=== PATIENT | female | born 1950 | race Caucasian/White ===

== ENCOUNTER 2016-12-17 02:53 | Inpatient (IN) | payer OTHER, MEDICARE ==
[~2016-12-17] VITALS: Ht 154.9 cm; Wt 78.6 kg
[2016-12-17] VITALS (7 sets, daily range): BP systolic 101–169; BP diastolic 56–109
--- NOTE | ~2016-12-17 | CATHLAB ---
[facility] [place] [address] INVASIVE PROCEDURE REPORT Name: FLAVIAKERLINEDELVIS Room #: 215-P [facility] IN [facility]#: [id number] Admission: 12/17/16 Attend Phys: Jose C Potts MD Discharge: Date of : 50 Date of Service: 12/17/16 1735 Report #: [id number] THIS REPORT FOR: //name// CC: Moshe Potts DATE OF SERVICE: 12/17/2016 INDICATION: Positive troponins, unstable angina. Full risks, benefits and alternatives of cardiac catheterization were explained to the patient. All questions were answered. Informed consent was obtained. The right groin area was prepped and draped in a sterile manner. Lidocaine was given subcutaneously. A 4-Zimbabwean sheath was inserted into the right femoral artery via modified Seldinger technique. CORONARY ANATOMY: The left main is a large caliber vessel, with no flow-limiting lesions. The LAD is a yhcvfdwm-[id number]-wnddt sized caliber vessel, travelling down the anterior wall and wrapping around the apex. There were no flow-limiting lesions in the LAD. There is a myocardial bridge in the proximal segment of the LAD with systolic collapse. The left circumflex artery gives off 2 obtuse marginal arteries, with no flow-limiting lesions. The RCA is a dominant vessel, supplying a PDA and posterolateral branch. There is mild disease in the proximal segment of the RCA, 20%. The ostium of the PDA has a mild stenosis, 30%. The LVEDP is approximately 20 mmHg. There is no gradient across the outflow tract. A ventriculogram was not performed. IMPRESSION AND PLAN: 1. 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 2. Mild disease in the right coronary artery and posterior descending artery. 3. By echo, hypertrophic cardiomyopathy with hyperdynamic left ventricular [facility] [place] [address] [place] [address] INVASIVE PROCEDURE REPORT Name: DELVIS SORIA Room #: 215-P [facility] IN [facility]#: [id number] Admission: 12/17/16 Attend Phys: Jose C Potts MD Discharge: Date of : 50 Date of Service: 12/17/16 1735 Report #: [id number] systolic function. 4. Recommend medical therapy. <ELECTRONICALLY SIGNED> By: Vikram Cardona MD 12/18/16 0818 1735 0333 Vikram Cardona MD /nt
--- NOTE | ~2016-12-17 | EKG ---
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
--- NOTE | ~2016-12-17 | 2DMMODE ---
[facility] [place] [address] 2 D/M-MODE ECHOCARDIOGRAM Name: FLAVIAKERLINEDELVIS Room #: 215-P [facility] IN ..#: [id number] Admission: 12/17/16 Attend Phys: Jose C Potts MD Discharge: Date of : 50 Date of Service: 12/17/16 1532 Report #: [id number] THIS REPORT FOR: //name// APPROVED REPORT Study performed: 12/17/2016 12:00:05 EXAM: Comprehensive 2D, Doppler, and color-flow Echocardiogram Patient Location: Bedside Room #: 215 Blood Pressure: 118/62 mmHg HR: 55 bpm Other Information Study Quality: Adequate Indications Dyspnea Atrial Fibrillation Hypertension/HDD Echo Enhancing Agent Indication: Endocardial border delineation Agent/Amount Used: Definity 2 cc 2D Dimensions LVEF(%): 69.34 (>50%) IVSd: 21.16 (7-11mm) LVOT Diam: 17.76 (18-24mm) LVDd: 30.15 mm PWd: 14.45 (7-11mm) Ascending Ao: 30.26 (22-36mm) LVDs: 18.80 (25-40mm) Aortic Root: 30.16 mm Capellan's LVEF: 69.34 % Volumes Left Atrial Volume (Systole) Single Plane 4CH: 104.24 mL Single Plane 2CH: 62.80 mL LA ESV Index: 54.00 mL/m2 Aortic Valve AoV Peak Jesus Manuel.: 1.54 m/s AO Peak Gr.: 9.48 mmHg LVOT Max P.91 mmHg [facility] [address] [place] [address] 2 D/M-MODE ECHOCARDIOGRAM Name: MISTIEMILKERLINEDELVIS Room #: 215-P [facility] IN [facility]#: [id number] Admission: 12/17/16 Attend Phys: Jose C Potts MD Discharge: Date of : 50 Date of Service: 12/17/16 1532 Report #: [id number] LVOT Max V: 1.11 m/s MARTHA Vmax: 1.78 cm2 Mitral Valve E/A Ratio: 2.0 MV Decel. Time: 179.16 ms MV E Max Jesus Manuel.: 0.75 m/s MV A Jesus Manuel.: 0.38 m/s MV PHT: 51.96 ms IVRT: 55.36 ms Pulmonary Valve PV Peak Jesus Manuel.: 0.82 m/s PV Peak Gr.: 2.71 mmHg NC End Vmax: 1.30 m/s Pulmonary Vein P Vein S: 38.1 m/s P Vein A: 23.31 m/s P Vein D: 27.8 m/s P Vein A Dur.: 110.7 msec Left Ventricle The left ventricle is normal size. Echo findings are consistent with hypertrophic cardiomyopathy. Severe concentric left ventricular hypertrophy. Left ventricular systolic function is hyperdynamic. The apex to mid ventricle demonstrates near cavity obliteration. LVEF is >80%. The left ventricular diastolic function is normal. Right Ventricle The right ventricle is normal size. There is normal right ventricular wall thickness. The right ventricular systolic function is normal. Atria Left atrium is dilated. The right atrium size is normal. Aortic Valve The aortic valve is normal in structure. Aortic valve is calcified. Trace to mild aortic regurgitation. There is no aortic valvular stenosis. Mitral Valve The mitral valve is normal in structure. Mild mitral regurgitation. No evidence of mitral valve stenosis. Tricuspid Valve The tricuspid valve is normal in structure. There is no tricuspid valve regurgitation noted. [facility] [address] [place] [address] 2 D/M-MODE ECHOCARDIOGRAM Name: DELVIS SORIA Room #: 215-P [facility] IN [facility]#: [id number] Admission: 12/17/16 Attend Phys: Jose C Potts MD Discharge: Date of : 50 Date of Service: 12/17/16 1532 Report #: [id number] Pulmonic Valve The pulmonary valve is normal in structure. Mild pulmonic regurgitation. Great Vessels The aortic root is normal in size. IVC is not well visualized. Pericardium There is no pericardial effusion. <Conclusion> The left ventricle is normal size. Echo findings are consistent with hypertrophic cardiomyopathy. Severe concentric left ventricular hypertrophy. Left ventricular systolic function is hyperdynamic. The apex to mid ventricle demonstrates near cavity obliteration. LVEF is >80%. Left atrium is dilated. The aortic valve is normal in structure. Aortic valve is calcified. Trace to mild aortic regurgitation. The mitral valve is normal in structure. Mild mitral regurgitation. The pulmonary valve is normal in structure. Mild pulmonic regurgitation. <ELECTRONICALLY SIGNED> By: Lan Dial MD 12/17/16 1532 153 153 Lan Dial MD /INF
[2016-12-17 03:20] LABS: HEMATOCRIT 46.5 % (37.0-47.0); MCH 29.4 pg (26.0-34.0); MCHC 34.4 g/dL (28.0-37.0); MCV 85.6 fL (80.0-100.0); PLATELET COUNT 247 thou/uL (150-400); RBC 5.43 mil/uL (4.20-5.00); RDW 12.8 % (10.5-14.5)
[2016-12-17 03:26] LABS: MANUAL DIFF YES
[2016-12-17 03:30] LABS: CALCIUM 9.6 mg/dL (8.5-10.1); CREATININE 1.2 mg/dL (0.6-1.0); POTASSIUM 3.6 mmol/L (3.5-5.1)
[2016-12-17 03:33] LABS: APTT 26.3 Seconds (24.5-32.8); PROTIME 10.4 Seconds (9.3-11.4)
[2016-12-17] MEDS ORDERED: ZOCOR20 MG PO (03:35)
[2016-12-17] MEDS ORDERED: TRIAMTERENE/HCT1 CA1 PO (03:35)
[2016-12-17 03:41] LABS: TOTAL BILIRUBIN 0.5 mg/dL (<0.1-1.0); TOTAL PROTEIN 7.9 g/dL (6.4-8.2); TROPONIN-I 0.1 ng/mL (<0.04-0.07)
[2016-12-17 04:31] LABS: ABSOLUTE NEUTROPHILS 3.7 thou/uL (1.4-8.2); TOTAL CELL COUNT 100
[2016-12-17 11:09] LABS: HEMATOCRIT 44.4 % (37.0-47.0); HEMOGLOBIN 15.3 gm/dL (12.0-15.0); MCH 29.8 pg (26.0-34.0); MCHC 34.6 g/dL (28.0-37.0); RBC 5.15 mil/uL (4.20-5.00); RDW 12.6 % (10.5-14.5); WBC 8.7 thou/uL (4.0-11.0)
[2016-12-17 13:15] LABS: URINE BILIRUBIN NEGATIVE (Negative); URINE BLOOD NEGATIVE (Negative); URINE COLOR YELLOW; URINE GLUCOSE-RANDOM* NEGATIVE (Negative); URINE KETONES NEGATIVE (Negative); URINE NITRITE NEGATIVE (Negative); URINE PROTEIN (DIPSTICK) NEGATIVE (Negative); URINE SPECIFIC GRAVITY <= 1.005 (1.003-1.035); URINE UROBILINOGEN 0.2 E.U./dl (0.2-1.0)
[2016-12-18 03:30] LABS: HEMATOCRIT 39.2 % (37.0-47.0); HEMOGLOBIN 13.6 gm/dL (12.0-15.0); MCH 29.6 pg (26.0-34.0); MCHC 34.7 g/dL (28.0-37.0); MCV 85.5 fL (80.0-100.0); RBC 4.58 mil/uL (4.20-5.00); RDW 12.6 % (10.5-14.5); WBC 8.9 thou/uL (4.0-11.0)
[2016-12-18 03:47] LABS: CALCIUM 8.5 mg/dL (8.5-10.1); CREATININE 1.1 mg/dL (0.6-1.0); POTASSIUM 3.8 mmol/L (3.5-5.1)
[2016-12-18 04:18] VITALS: BP 113/62
[2016-12-18 07:45] VITALS: BP 131/64
[2016-12-18 11:20] VITALS: BP 132/82
[2016-12-18] MEDS ORDERED: METOPROLOL SUCC50 MG PO (11:26)
[2016-12-18] MEDS ORDERED: ASPIRIN EC325 M1 PO (11:26)
[2016-12-18] MEDS ORDERED: ELIQUIS5 MG PO (11:26)
[2016-12-18 11:48] VITALS: BP 131/64
[2016-12-18 12:29] VITALS: BP 131/64
== END 2016-12-18 12:40 | disposition home or self-care (01) | DRG 287 ==
LOC: ER 02:53 → EROBS 04:32 → 2N 04:32 → EROBS 04:32 → 2N 05:42
PROVIDERS: Emergency Medicine; Nurse Practitioner Family; Nurse Practitioner Gerontology
PROC: 4A023N7 Measurement of Cardiac Sampling and Pressure, Left Heart, Percutaneous Approach (ICD-10-PCS; principal; 2016-12-17)
PROC: B2111ZZ Fluoroscopy of Multiple Coronary Arteries using Low Osmolar Contrast (ICD-10-PCS; principal; 2016-12-17)
DX: I48.91 Unspecified atrial fibrillation (principal); Q24.5 Malformation of coronary vessels; R07.9 Chest pain, unspecified; I10 Essential (primary) hypertension; E78.5 Hyperlipidemia, unspecified; D72.829 Elevated white blood cell count, unspecified; I77.819 Aortic ectasia, unspecified site; M70.70 Other bursitis of hip, unspecified hip; E78.00 Pure hypercholesterolemia, unspecified; I42.2 Other hypertrophic cardiomyopathy; Z90.710 Acquired absence of both cervix and uterus; Z88.8 Allergy status to other drugs, medicaments and biological substances; Z98.42 Cataract extraction status, left eye; Z98.41 Cataract extraction status, right eye; N19 Unspecified kidney failure
CPT/HCPCS: 10081

== ENCOUNTER → 2018-01-12 | Outpatient (CLI) | payer OTHER, MEDICARE ==
[~2018-01-12] MED LIST: ASPIRIN EC325 M1 PO; ELIQUIS5 MG PO; METOPROLOL SUCC50 MG PO; TRIAMTERENE/HCT1 CA1 PO; ZOCOR20 MG PO
== END ==
LOC: NUC 07:21
DX: Z01.818 Encounter for other preprocedural examination (principal); I25.10 Atherosclerotic heart disease of native coronary artery without angina pectoris; E78.5 Hyperlipidemia, unspecified; I10 Essential (primary) hypertension

== ENCOUNTER → 2018-07-20 | Outpatient (CLI) | payer OTHER, MEDICARE ==
--- NOTE | ~2018-07-20 | 2DMMODE ---
[facility] [place] [address] 2 D/M-MODE ECHOCARDIOGRAM Name: DELVIS SORIA Room #: REG CL [facility]#: [id number] Admission: 07/20/18 Attend Phys: Vikram Cardona MD Discharge: Date of : 50 Date of Service: 07/20/18 0959 Report #: [id number] THIS REPORT FOR: //name// APPROVED REPORT Study performed: 07/20/2018 09:08:40 EXAM: Comprehensive 2D, Doppler, and color-flow Echocardiogram Patient Location: Out-Patient Status: routine BSA: 1.74 HR: 65 bpm BP: 118/60 mmHg Rhythm: NSR Other Information Study Quality: Adequate Indications Afib. Hx: hypertrophic cardiomyopathy, Afib, HTN, HLP. 2D Dimensions RVDd: 34.68 mm IVSd: 19.92 (7-11mm) LVOT Diam: 21.13 (18-24mm) LVDd: 38.79 mm PWd: 9.15 (7-11mm) LVDs: 24.08 (25-40mm) Aortic Root: 33.33 mm Volumes Left Atrial Volume (Systole) Single Plane 4CH: 48.25 mL Single Plane 2CH: 65.74 mL LA ESV Index: 35.00 mL/m2 Aortic Valve AoV Peak Jesus Manuel.: 1.56 m/s AO Peak Gr.: 9.75 mmHg LVOT Max P.35 mmHg LVOT Max V: 1.44 m/s MARTHA Vmax: 3.24 cm2 Mitral Valve E/A Ratio: 0.9 MV Decel. Time: 233.51 ms MV E Max Jesus Manuel.: 0.63 m/s [facility] [address] [address] 2 D/M-MODE ECHOCARDIOGRAM Name: DELVIS SORIA PRESTON Room #: REG [facility]#: [id number] Admission: 07/20/18 Attend Phys: Vikram Cardona MD Discharge: Date of : 50 Date of Service: 07/20/18 0959 Report #: [id number] MV A Jesus Manuel.: 0.71 m/s MV PHT: 67.72 ms IVRT: 83.04 ms Pulmonary Valve PV Peak Jesus Manuel.: 0.85 m/s PV Peak Gr.: 2.91 mmHg Pulmonary Vein P Vein S: 0.63 m/s P Vein A: 0.25 m/s P Vein D: 0.32 m/s P Vein A Dur.: 152.2 msec P Vein S/D Ratio: 1.97 Tricuspid Valve TR Peak Jesus Manuel.: 1.93 m/s RAP Estimate: 5.00 mmHg TR Peak Gr.: 14.96 mmHg PA Pressure: 20.00 mmHg Left Ventricle The left ventricle is normal size. Echo finding are consistent with hypertophic cardiomyopathy. Severe concentric left ventricular hypertrophy. Left ventricular systolic function is hyperdynamic. The apex to mid ventricle demonstrates cavity obliteration. LVEF is 65%. Moderate diastolic dysfunction is present (pseudonormal filling). Right Ventricle The right ventricle is normal size. The right ventricular systolic function is normal. Atria Left atrium is mildly dilated. The right atrium size is normal. Aortic Valve The aortic valve is normal in structure. Mild aortic regurgitation. There is no aortic valvular stenosis. Mitral Valve The mitral valve is normal in structure. Mild mitral regurgitation. Tricuspid Valve The tricuspid valve is normal in structure. Trace tricuspid regurgitation. Estimated PAP is 20-25mmHg. Pulmonic Valve [facility] [address] [place] [address] 2 D/M-MODE ECHOCARDIOGRAM Name: DELVIS SORIA MICHELLE Room #: REG [facility]#: [id number] Admission: 07/20/18 Attend Phys: Vikram Cardona MD Discharge: Date of : 50 Date of Service: 07/20/18 0959 Report #: [id number] The pulmonary valve is normal in structure. Moderate pulmonic regurgitation. Great Vessels The aortic root is normal in size. The ascending aorta is normal in size. IVC is normal in size and collapses >50% with inspiration. Pericardium There is no pericardial effusion. <Conclusion> The left ventricle is normal size. Echo finding are consistent with hypertophic cardiomyopathy. Severe concentric left ventricular hypertrophy. Left ventricular systolic function is hyperdynamic. The apex to mid ventricle demonstrates cavity obliteration. Moderate diastolic dysfunction is present (pseudonormal filling). The right ventricle is normal size. Left atrium is mildly dilated. Mild aortic regurgitation. Mild mitral regurgitation. Trace tricuspid regurgitation. Estimated PAP is 20-25mmHg. <ELECTRONICALLY SIGNED> By: Vikram Cardona MD 07/20/1859 8 8 Vikram Cardona MD /INF
== END ==
LOC: CV 07:49
DX: I08.0 Rheumatic disorders of both mitral and aortic valves (principal); I48.91 Unspecified atrial fibrillation; I10 Essential (primary) hypertension; E78.5 Hyperlipidemia, unspecified

== ENCOUNTER → 2019-07-19 | Outpatient (CLI) | payer OTHER, MEDICARE ==
--- NOTE | 2019-07-19 09:58 | 2DMMODE ---
[facility] [place] [address] 2 D/M-MODE ECHOCARDIOGRAM Name: DELVIS SORIA Room #: REG CL [facility]#: [id number] Admission: 07/19/19 Attend Phys: Vikram Cardona MD Discharge: Date of : 50 Report #: [id number] THIS REPORT FOR: //name// APPROVED REPORT Study performed: 07/19/2019 09:11:54 EXAM: Comprehensive 2D, Doppler, and color-flow Echocardiogram Patient Location: Out-Patient Status: routine BSA: 1.76 HR: 63 bpm BP: 120/58 mmHg Rhythm: NSR Other Information Study Quality: Adequate Indications Atrial Fibrillation Hypertrophic cardiomyopathy. 2D Dimensions RVDd: 30.05 mm IVSd: 19.00 (7-11mm) LVOT Diam: 21.00 (18-24mm) LVDd: 38.00 mm PWd: 11.00 (7-11mm) LVDs: 27.11 (25-40mm) Aortic Root: 33.02 mm Volumes Left Atrial Volume (Systole) Single Plane 4CH: 75.63 mL Single Plane 2CH: 55.94 mL LA ESV Index: 38.00 mL/m2 Aortic Valve AoV Peak Jesus Manuel.: 1.68 m/s AO Peak Gr.: 11.26 mmHg LVOT Max P.30 mmHg LVOT Max V: 1.44 m/s MARTHA Vmax: 2.95 cm2 Mitral Valve E/A Ratio: 0.7 MV Decel. Time: 328.36 ms [facility] [address] [address] 2 D/M-MODE ECHOCARDIOGRAM Name: DELVIS SORIA [facility] [id number] Admission: 07/19/19 Attend Phys: Vikram Cardona MD Discharge: Date of : 50 Report #: [id number] MV E Max Jesus Manuel.: 0.44 m/s MV A Jesus Manuel.: 0.63 m/s MV PHT: 95.22 ms IVRT: 96.89 ms Pulmonary Valve PV Peak Jesus Manuel.: 0.90 m/s PV Peak Gr.: 3.22 mmHg Pulmonary Vein P Vein S: 0.77 m/s P Vein D: 0.50 m/s P Vein S/D Ratio: 1.54 Tricuspid Valve TR Peak Jesus Manuel.: 1.99 m/s RAP Estimate: 5.00 mmHg TR Peak Gr.: 19.00 mmHg PA Pressure: 24.00 mmHg Left Ventricle Echo findings are consistent with hypertrophic cardiomyopathy. Severe hypertrophy. The apex to mid ventricle demonstrates cavity obliteration. The left ventricle is normal size. Left ventricular systolic function is normal. LVEF is 65%. Mild diastolic dysfunction is present (impaired relaxation pattern). Right Ventricle The right ventricle is normal size. The right ventricular systolic function is normal. Atria Left atrium is mildly dilated. The right atrium size is normal. Aortic Valve The aortic valve is normal in structure. Mild aortic regurgitation. There is no aortic valvular stenosis. Mitral Valve The mitral valve is normal in structure. Mild mitral regurgitation. Tricuspid Valve The tricuspid valve is normal in structure. Trace tricuspid regurgitation. Estimated PAP is 25mmHg. Pulmonic Valve [facility] [address] [place] [address] 2 D/M-MODE ECHOCARDIOGRAM Name: DELVIS SORIA Room #: REG [facility]#: [id number] Admission: 07/19/19 Attend Phys: Vikram Cardona MD Discharge: Date of : 50 Report #: [id number] The pulmonary valve is normal in structure. Moderate pulmonic regurgitation. Great Vessels The aortic root is normal in size. IVC is normal in size and collapses >50% with inspiration. Pericardium There is no pericardial effusion. <Conclusion> Echo findings are consistent with hypertrophic cardiomyopathy. Severe hypertrophy. Left ventricular systolic function is normal. Mild diastolic dysfunction is present (impaired relaxation pattern). The right ventricle is normal size. Left atrium is mildly dilated. The right atrium size is normal. Mild aortic regurgitation. Mild mitral regurgitation. Trace tricuspid regurgitation. Estimated PAP is 25mmHg. <ELECTRONICALLY SIGNED> By: Vikram Cardona MD 07/19/19 0958 0958 0958 Vikram Cardona MD /JULIO
== END ==
LOC: CV 08:54
DX: I08.0 Rheumatic disorders of both mitral and aortic valves (principal); I48.91 Unspecified atrial fibrillation

== ENCOUNTER → 2019-08-16 | Outpatient (CLI) | payer OTHER, MEDICARE | LOC: SJCVCIMAG 12:59 | DX: R94.31 Abnormal electrocardiogram [ECG] [EKG] (principal); I11.9 Hypertensive heart disease without heart failure; I48.0 Paroxysmal atrial fibrillation; I42.1 Obstructive hypertrophic cardiomyopathy; E78.00 Pure hypercholesterolemia, unspecified; I25.10 Atherosclerotic heart disease of native coronary artery without angina pectoris; K21.9 Gastro-esophageal reflux disease without esophagitis; Z88.8 Allergy status to other drugs, medicaments and biological substances; Z79.84 Long term (current) use of oral hypoglycemic drugs; Z79.891 Long term (current) use of opiate analgesic; Z79.899 Other long term (current) drug therapy; Z96.642 Presence of left artificial hip joint; Z90.710 Acquired absence of both cervix and uterus ==

== ENCOUNTER → 2020-01-14 | Outpatient (CLI) | payer OTHER, MEDICARE | LOC: SJCVC 10:17 | PROVIDERS: ATTEND Internal Medicine Cardiovascular Disease | DX: R94.31 Abnormal electrocardiogram [ECG] [EKG] (principal); I48.0 Paroxysmal atrial fibrillation; I10 Essential (primary) hypertension; E78.00 Pure hypercholesterolemia, unspecified; I25.10 Atherosclerotic heart disease of native coronary artery without angina pectoris; K21.9 Gastro-esophageal reflux disease without esophagitis; E78.5 Hyperlipidemia, unspecified; I25.2 Old myocardial infarction; Z82.49 Family history of ischemic heart disease and other diseases of the circulatory system; Z79.01 Long term (current) use of anticoagulants; Z79.899 Other long term (current) drug therapy ==

== ENCOUNTER → 2020-08-18 | Outpatient (CLI) | payer OTHER, MEDICARE | LOC: SJCVC 14:10 | PROVIDERS: ATTEND Internal Medicine Cardiovascular Disease | DX: I48.91 Unspecified atrial fibrillation (principal); R94.31 Abnormal electrocardiogram [ECG] [EKG]; I10 Essential (primary) hypertension; I25.10 Atherosclerotic heart disease of native coronary artery without angina pectoris; E78.5 Hyperlipidemia, unspecified; I42.9 Cardiomyopathy, unspecified; K21.9 Gastro-esophageal reflux disease without esophagitis; I25.2 Old myocardial infarction; Z79.899 Other long term (current) drug therapy ==

== ENCOUNTER 2020-12-24 22:15 | Emergency (ER) | payer OTHER, MEDICARE ==
[~2020-12-24] VITALS: Ht 154.9 cm; Wt 79.4 kg
[2020-12-24 22:50] LABS: ABSOLUTE NEUTROPHILS 4.2 thou/uL (1.4-8.2); EOSINOPHILS 2.6 % (0.0-3.0); HEMATOCRIT 41.9 % (37.0-47.0); HEMOGLOBIN 14.1 gm/dL (12.0-15.0); LYMPHOCYTES 45.5 % (24.0-44.0); MCH 30.1 pg (26.0-34.0); MCHC 33.6 g/dL (28.0-37.0); MCV 89.6 fL (80.0-100.0); MONOCYTES 10.3 % (1.0-8.0); PLATELET COUNT 238 thou/uL (150-400); POLYS 40.6 % (36.0-66.0); RBC 4.68 mil/uL (4.20-5.00); RDW 12.8 % (10.5-14.5); WBC 10.3 thou/uL (4.0-11.0)
[2020-12-24] MEDS ORDERED: ASA81BEC PO (23:05)
[2020-12-24] MEDS ORDERED: LIPITOR 20 MG T20 M1 PO (23:06)
[2020-12-24] MEDS ORDERED: TOPROL XL100 MG PO (23:06)
[2020-12-24] MEDS ORDERED: OLMESARTAN-HCT1 EACH PO (23:07)
[2020-12-24] MEDS ORDERED: FAMOTIDINE40 MG PO (23:07)
[2020-12-24 23:16] LABS: ANION GAP 11 mmol/L (7-16); BUN 30 mg/dL (7-18); CALCIUM 8.7 mg/dL (8.5-10.1); CHLORIDE 101 mmol/L (98-107); CO2 26 mmol/L (21-32); CREATININE 1.7 mg/dL (0.6-1.0); GLUCOSE 143 mg/dL (74-106); POTASSIUM 3.4 mmol/L (3.5-5.1); SODIUM 138 mmol/L (136-145)
[2020-12-24 23:26] LABS: ALBUMIN 3.6 g/dL (3.4-5.0); SGOT 24 U/L (15-37); SGPT 30 U/L (30-65); TOTAL BILIRUBIN 0.5 mg/dL (0.2-1.0); TOTAL PROTEIN 7.4 g/dL (6.4-8.2); TROPONIN-I <0.06 ng/mL (<0.06)
[2020-12-25 00:08] VITALS: BP 119/49
--- NOTE | 2020-12-25 08:13 | EKG ---
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
--- NOTE | 2020-12-26 08:19 | EKG ---
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1950 Requested By: Davidson Hunter Order Number: [id number] MD: Spike Macias Measurements Intervals [place] Rate: 128 P: LA: QRS: -24 QRSD: 100 T: 153 QT: 341 QTc: 498 Interpretive Statements Atrial fibrillation LVH with secondary repolarization abnormality Inferior infarct, old Compared to ECG 12/17/2016 03:04:13 Myocardial infarct finding now present Electronically Signed On 12-26-2020 8:18:49 CDT by Spike Macias [email or web address] <ELECTRONICALLY SIGNED> By: Spike Macias MD, [facility] 12/26/2018 22 22 Spike Macias MD, FACC /EPI
== END 2020-12-25 00:14 | disposition admitted as inpatient to this hospital (09) ==
LOC: ER 22:15
PROVIDERS: Emergency Medicine
DX: I48.20 Chronic atrial fibrillation, unspecified (principal); I10 Essential (primary) hypertension; Z88.8 Allergy status to other drugs, medicaments and biological substances; Z79.899 Other long term (current) drug therapy; Z79.82 Long term (current) use of aspirin; Z90.710 Acquired absence of both cervix and uterus

== ENCOUNTER → 2021-02-10 | Outpatient (CLI) | payer OTHER, MEDICARE ==
[~2021-02-10] MED LIST changes: +ASA81BEC PO; +FAMOTIDINE40 MG PO; +LIPITOR 20 MG T20 M1 PO; +OLMESARTAN-HCT1 EACH PO; +TOPROL XL100 MG PO
== END ==
LOC: SJCVCIMAG 07:38
PROVIDERS: ATTEND Internal Medicine Cardiovascular Disease
DX: I48.0 Paroxysmal atrial fibrillation (principal); I49.3 Ventricular premature depolarization; R94.31 Abnormal electrocardiogram [ECG] [EKG]; I25.10 Atherosclerotic heart disease of native coronary artery without angina pectoris; R60.9 Edema, unspecified; E78.5 Hyperlipidemia, unspecified; K21.9 Gastro-esophageal reflux disease without esophagitis; Z88.8 Allergy status to other drugs, medicaments and biological substances; Z90.710 Acquired absence of both cervix and uterus; Z79.82 Long term (current) use of aspirin; Z79.899 Other long term (current) drug therapy; Z82.49 Family history of ischemic heart disease and other diseases of the circulatory system

== ENCOUNTER → 2021-02-17 | Outpatient (CLI) | payer OTHER, MEDICARE ==
[~2021-02-17] VITALS: Ht 154.9 cm; Wt 79.0 kg
[2021-02-17 09:01] VITALS: BP 128/53
[2021-02-17 09:27] LABS: HEMATOCRIT 43.1 % (37.0-47.0); HEMOGLOBIN 14.4 gm/dL (12.0-15.0); MCH 29.7 pg (26.0-34.0); MCHC 33.5 g/dL (28.0-37.0); MCV 88.8 fL (80.0-100.0); RBC 4.85 mil/uL (4.20-5.00); RDW 12.8 % (10.5-14.5); WBC 7.4 thou/uL (4.0-11.0)
[2021-02-17 09:34] LABS: CALCIUM 9.2 mg/dL (8.5-10.1); CREATININE 1.3 mg/dL (0.6-1.0); POTASSIUM 3.8 mmol/L (3.5-5.1)
--- NOTE | 2021-02-17 16:41 | CATHLAB ---
[facility] [place] [address] INVASIVE PROCEDURE REPORT Name: DELVIS SORIA Room #: REG [facility]#: [id number] Admission: 02/17/21 Attend Phys: Vikram Cardona MD Discharge: Date of : 50 Report #: [id number] THIS REPORT FOR: cc: Moshe Jones III, III, Herbert E. DO Park, Jin S. MD ~ APPROVED REPORT Study performed: 02/17/2021 10:53:25 Patient Details Patient Status: Out-Patient Room #: The patient is a 70 year-old female Event Personnel Vikram Cardona Principal Law Clerk, Yusra Knott RTR, REMOTE OPERATIONS PRODUCER Monitor, Vreenice Marcelo RN RN, Estefany Frost RTR Scrub Procedures Performed Art Access - R femoral artery* Left Heart Cath w/or w/o Coronaries [id number] [facility] [address] Initial Mod Sed Same Phys/QHP Gr 722888 92042 Mod Sed Same Phys/QHP Ea [id number] Hemostasis with Manual pressure Indication Dyspnea, Positive stress test Risk Factors Hypercholesterolemia, Coronary Artery DiseaseHypertension Procedure Narrative The Right Groin^ was infiltrated with 1% Lidocaine subcutaneous anesthesia. A PINNACLE 4FR Sheath #[id number] sheath was inserted into the RFA^. Coronary angiography was performed using coronary diagnostic catheters. The right coronary system was accessed and visualized with a JR4 catheter. The left coronary system was accessed and visualized with a JL4 catheter. The left ventricle was accessed and visualized with a JR4 catheter. Left ventricular/Aortic Valve gradient assessed via catheter pullback. Hemostasis was obtained with manual pressure following sheath removal without any complications. The patient tolerated the procedure well and there were no complications associated with the procedure. There was no hematoma. [facility] [address] [place] [address] INVASIVE PROCEDURE REPORT Name: DELVIS SORIA MICHELLE Room #: REG [facility]#: [id number] Admission: 02/17/21 Attend Phys: Vikram Cardona MD Discharge: Date of : 50 Report #: [id number] Intraoperative Conscious Sedation Sedation start time: 11:08 Case end Time: 11:33 Fentanyl 75 mcg Versed 1 mg Fluoro Time: 1.29 minutes Dose: DAP 2585.40 cGycm2 361 mGy Contrast Type and Amount: Visipaque 45 ml Coronary Angiography The patient's coronary anatomy is right dominant. Diagnostic Cath Left Main Left main artery is a large-caliber vessel, patent with no flow-limiting lesions. LAD The LAD is a moderate-sized caliber vessel, traverses the anterior wall and terminates at the apex. This vessel is patent with no flow-limiting lesions. There is a myocardial bridge in the proximal segment, with lumen collapse during systole. Circumflex The left circumflex artery is a moderate-sized caliber vessel, patent with no flow-limiting lesions. OM1 This is a moderate-sized caliber vessel, patent with no flow-limiting lesions. OM2 This is a moderate-sized caliber vessel, patent with no flow-limiting lesions. Right Coronary The RCA is a dominant vessel with mild disease in the midsegment, 30%. R PDA This is a moderate-sized caliber vessel, patent with no flow-limiting lesions. RPLV This is a moderate-sized caliber vessel, patent with no flow-limiting lesions. Left Ventriculography Left Ventriculography was not performed. Ejection Fraction was 55-60% based off patient's Nuclear Cardiac Stress Test. An LVEDP was measured and there is no gradient across the outflow tract. Hemodynamics The aortic pressure is 130/62 mmHg with a mean of 90 mmHg. The left ventricular pressure is 123/18 mmHg with a mean of mmHg. The left ventricular end diastolic pressure is 33 mmHg. Conclusion 1. There is mild, nonobstructive disease in the RCA. 2. There is a myocardial bridge in the proximal LAD segment. [facility] [address] [place] [address] INVASIVE PROCEDURE REPORT Name: DELVIS SORIA MICHELLE [facility] [id number] Admission: 02/17/21 Attend Phys: Vikram Cardona MD Discharge: Date of : 50 Report #: [id number] 3. There is normal LV systolic function. 4. Recommend guideline directed medical therapy and risk factor management. <ELECTRONICALLY SIGNED> By: Vikram Cardona MD 02/17/21 1640 1640 1640 Vikram Cardona MD /INF
== END | disposition home or self-care (01) ==
LOC: CATH 07:18
PROVIDERS: ATTEND Internal Medicine Cardiovascular Disease
DX: R94.39 Abnormal result of other cardiovascular function study (principal); I25.10 Atherosclerotic heart disease of native coronary artery without angina pectoris; R06.00 Dyspnea, unspecified; I10 Essential (primary) hypertension; E78.00 Pure hypercholesterolemia, unspecified; I42.9 Cardiomyopathy, unspecified; I48.91 Unspecified atrial fibrillation; E78.5 Hyperlipidemia, unspecified; K21.9 Gastro-esophageal reflux disease without esophagitis; Z98.890 Other specified postprocedural states; Z79.899 Other long term (current) drug therapy; Z98.41 Cataract extraction status, right eye; Z90.710 Acquired absence of both cervix and uterus; Z98.42 Cataract extraction status, left eye; Z79.01 Long term (current) use of anticoagulants; Z79.82 Long term (current) use of aspirin; Z88.8 Allergy status to other drugs, medicaments and biological substances

== ENCOUNTER → 2021-02-19 | Outpatient (CLI) | payer OTHER, MEDICARE | LOC: SJCVC 14:03 | PROVIDERS: ATTEND Internal Medicine Cardiovascular Disease | DX: R94.31 Abnormal electrocardiogram [ECG] [EKG] (principal); I48.0 Paroxysmal atrial fibrillation; I42.2 Other hypertrophic cardiomyopathy; I11.9 Hypertensive heart disease without heart failure; E78.5 Hyperlipidemia, unspecified; Z95.818 Presence of other cardiac implants and grafts; Z79.82 Long term (current) use of aspirin; Z79.899 Other long term (current) drug therapy; Z88.8 Allergy status to other drugs, medicaments and biological substances; K21.9 Gastro-esophageal reflux disease without esophagitis; I25.10 Atherosclerotic heart disease of native coronary artery without angina pectoris; Z72.89 Other problems related to lifestyle ==

== ENCOUNTER → 2021-03-16 | Outpatient (CLI) | payer OTHER, MEDICARE | LOC: SJCVC 11:00 | PROVIDERS: ATTEND Internal Medicine Cardiovascular Disease | DX: I25.10 Atherosclerotic heart disease of native coronary artery without angina pectoris (principal); R94.31 Abnormal electrocardiogram [ECG] [EKG]; I11.9 Hypertensive heart disease without heart failure; I42.2 Other hypertrophic cardiomyopathy; I48.0 Paroxysmal atrial fibrillation; E78.00 Pure hypercholesterolemia, unspecified; R60.9 Edema, unspecified; K21.9 Gastro-esophageal reflux disease without esophagitis; E78.5 Hyperlipidemia, unspecified; R00.2 Palpitations; F10.10 Alcohol abuse, uncomplicated; Z90.710 Acquired absence of both cervix and uterus; Z88.8 Allergy status to other drugs, medicaments and biological substances; Z79.82 Long term (current) use of aspirin; Z79.899 Other long term (current) drug therapy; Z82.41 Family history of sudden cardiac death ==

== ENCOUNTER → 2021-04-08 | Outpatient (CLI) | payer OTHER, MEDICARE ==
[~2021-04-08] MED LIST changes: +XARELTO1 EACH PO
[2021-04-08 10:21] LABS: ABSOLUTE NEUTROPHILS 4.1 thou/uL (1.4-8.2); BASOPHILS 0.8 % (0.0-2.0); EOSINOPHILS 2.3 % (0.0-3.0); HEMOGLOBIN 14.3 gm/dL (12.0-15.0); LYMPHOCYTES 33.2 % (24.0-44.0); MCH 29.4 pg (26.0-34.0); MCHC 33.1 g/dL (28.0-37.0); MCV 88.8 fL (80.0-100.0); PLATELET COUNT 239 thou/uL (150-400); POLYS 53.7 % (36.0-66.0); RBC 4.84 mil/uL (4.20-5.00); RDW 13.2 % (10.5-14.5); WBC 7.6 thou/uL (4.0-11.0)
[2021-04-08 10:32] LABS: ALBUMIN 3.6 g/dL (3.4-5.0); CALCIUM 9.3 mg/dL (8.5-10.1); CREATININE 1.2 mg/dL (0.6-1.0); POTASSIUM 4.9 mmol/L (3.5-5.1); TOTAL BILIRUBIN 0.7 mg/dL (0.2-1.0); TOTAL PROTEIN 7.4 g/dL (6.4-8.2)
== END ==
LOC: CAT 09:15
PROVIDERS: ATTEND Internal Medicine Cardiovascular Disease
DX: I25.10 Atherosclerotic heart disease of native coronary artery without angina pectoris (principal); K76.89 Other specified diseases of liver; M41.85 Other forms of scoliosis, thoracolumbar region

== ENCOUNTER 2021-04-09 06:25 | Observation (INO) | payer OTHER, MEDICARE ==
[~2021-04-09] VITALS: Ht 154.9 cm; Wt 80.3 kg
[~2021-04-09 06:25] MED LIST changes: -XARELTO1 EACH PO
[2021-04-09 07:44] VITALS: BP 131/66
[2021-04-09 07:48] LABS: ABSOLUTE NEUTROPHILS 3.5 thou/uL (1.4-8.2); BASOPHILS 0.7 % (0.0-2.0); EOSINOPHILS 3.4 % (0.0-3.0); HEMATOCRIT 43.7 % (37.0-47.0); HEMOGLOBIN 14.5 gm/dL (12.0-15.0); LYMPHOCYTES 35.1 % (24.0-44.0); MCH 29.6 pg (26.0-34.0); MCHC 33.3 g/dL (28.0-37.0); MCV 88.8 fL (80.0-100.0); PLATELET COUNT 237 thou/uL (150-400); POLYS 48.8 % (36.0-66.0); RBC 4.92 mil/uL (4.20-5.00); RDW 13.3 % (10.5-14.5); WBC 7.2 thou/uL (4.0-11.0)
[2021-04-09 07:59] LABS: CALCIUM 9.1 mg/dL (8.5-10.1); CREATININE 1.2 mg/dL (0.6-1.0); POTASSIUM 4.1 mmol/L (3.5-5.1)
[2021-04-09] MEDS ORDERED: XARELTO1 EACH PO (08:01)
[2021-04-09 08:05] LABS: ALBUMIN 3.6 g/dL (3.4-5.0); TOTAL BILIRUBIN 0.5 mg/dL (0.2-1.0); TOTAL PROTEIN 7.7 g/dL (6.4-8.2)
[2021-04-09 08:44] LABS: APTT 27.9 Seconds (24.5-32.8); INR 1.08; PROTIME 11.7 Seconds (10.5-12.1)
[2021-04-09 15:28] VITALS: BP 134/75
[2021-04-09 19:25] VITALS: BP 132/67
[2021-04-09 23:47] VITALS: BP 109/53
--- NOTE | 2021-04-10 02:53 | NUR ---
SLEPT PART OF NOC. UP AD VELASQUEZ TO BATHROOM WITH STEADY GAIT. DENIES COMPLAINTS OF PAIN OR SHORTNESS OF AIR. WORKING ON GOALS AND PLAN OF CARE FOR NOC. PLANS FOR DISCHARGE THIS AM. CONTINUE TO ASSES CLOSELY.
[2021-04-10 04:48] VITALS: BP 109/59
[2021-04-10 07:00] VITALS: BP 111/54
--- NOTE | 2021-04-10 10:42 | P ---
[facility] [place] [address] PROCEDURE REPORT Name: DELVIS SORIA Room #: 201-P [facility] M.R.#: [id number] Admission: 04/09/21 Attend Phys: Timothy Liu MD Discharge: Date of : 50 Report #: [id number] THIS REPORT FOR: cc: Moshe Jones III, III, Herbert E. DO Couchonnal,Timothy Royal MD ~ DATE OF SERVICE: 04/09/2021 PREOPERATIVE DIAGNOSIS: Atrial fibrillation. POSTOPERATIVE DIAGNOSES: 1. Atrial fibrillation. 2. Typical atrial flutter. HISTORY OF PRESENT ILLNESS: The patient is a 70-year-old female with history of apical hypertrophic cardiomyopathy, paroxysmal atrial fibrillation, status post Watchman procedure in the spring, who has had recurrent atrial fibrillation and is here for ablation. PROCEDURES PERFORMED: 1. Atrial fibrillation ablation, CPT code 24857. 2. 3D mapping, CPT code 00095. 3. Intracardiac echo, CPT code 89692. 4. Second pathway ablation, CPT code 60471. ANESTHESIA: The patient underwent general anesthesia with no anesthesia related complications. DESCRIPTION OF PROCEDURE: The patient underwent informed consent. We discussed the details of the procedure including the risks, which include but not limited to bleeding, infection, vascular damage, cardiac perforation, stroke and PA. She understood these risks and was willing to proceed. The patient was brought to the EP laboratory in a fasting and sedated state and prepped and draped in a standard fashion. I injected lidocaine at the right groin and obtained access in the right femoral vein x 3, placing an 8, 9 and 7-Armenian short sheath using the modified Seldinger technique. At baseline, the patient was in sinus rhythm with a sinus cycle length of 1270 milliseconds, ID interval 175 milliseconds, QRS duration 98 milliseconds, QT interval 45 milliseconds. Next, a decapolar catheter was placed in the coronary sinus and an ICE catheter was placed in the right atrium. Using intracardiac ultrasound, I created a 3D geometry of the left atrium. There was evidence of two left and two right pulmonary veins and there was visualization of the left atrial appendage, which did have a Watchman positioned. The patient was systemically heparinized. Transseptal was performed using SL1 sheath and Francis needle and this was straightforward. The Lasso catheter was placed in the left atrium and [facility] [address] [place] [address] PROCEDURE REPORT Name: DELVIS SORIA Room #: 201-P [facility] Darlin Le#: [id number] Admission: 04/09/21 Attend Phys: Timothy Liu MD Discharge: Date of : 50 Report #: [id number] a 3D voltage map of the left atrium was then created. I then started isolating the veins. The left superior pulmonary vein underwent a 4-minute freeze and isolated at 60 seconds. The left inferior pulmonary vein underwent two 4-minute freezes and post-ablation, it appeared to be isolated. There were some far field left atrial signals that did not capture. The right superior pulmonary vein underwent two 4-minute freezes and appeared to be isolated post-ablation. The right inferior pulmonary vein underwent a 4-minute freeze and isolated at 20 seconds. Phrenic nerve pacing was performed with a decapolar catheter placed at the subclavian vessel and there was never phrenic nerve compromise. Next, a repeat 3D voltage map was created showing that we had wide circumferential ablation of the 4 pulmonary veins. There were far field signals noted in the left inferior and left superior pulmonary veins that were likely from the left atrial appendage, which was large. Post-ablation EP study was performed. AV block was noted at 360 milliseconds. AV onel ERP was noted at 280 milliseconds at a [address] cycle length with no jump and no AV onel echoes. With aggressive atrial pacing, the patient would develop hypotension likely related to her apical hypertrophic cardiomyopathy. When I performed pacing down to 250 milliseconds, the patient went into atrial flutter. This appeared to be consistent with cavotricuspid isthmus dependent flutter with atrial cycle length of 280 milliseconds proximal to distal activation along the coronary sinus and negative sawtooth flutter waves in the inferior leads. I placed the Lasso catheter into the right atrium and started creating an activation map of this flutter and as I was mapping along the cavotricuspid isthmus, this resulted in termination of the flutter as such a diagnosis of typical atrial flutter was established. Ablation of cavotricuspid isthmus-dependent flutter. Next, a 8 mm ablation catheter and a ramp sheath were placed into the right atrium. Preablation, the transisthmus conduction time was 50 milliseconds. Next, ablation was performed at 70 georges and 60 degrees. She did have somewhat of a deep pouch along the posterior aspect and I performed additional ablation of medial and lateral to my initial line. After performing three lines along the isthmus, we performed pacing maneuvers. The transisthmus conduction time was now 145 milliseconds with an activation sequence consistent with bidirectional block. As such, the patient was in sinus rhythm. Using intracardiac ultrasound, I verified there was no evidence of pericardial effusion. The patient received systemic protamine and once the ACT was acceptable range, catheters and sheaths were pulled. Hemostasis was obtained. The patient awoke neurologically and hemodynamically intact. No complications. No significant bleeding. CONCLUSIONS: 1. Successful atrial fibrillation ablation with isolation of the pulmonary [facility] [address] [place] [address] PROCEDURE REPORT Name: DELVIS SORIA MICHELLE Room #: 201-P [facility] Darlin Le#: [id number] Admission: 04/09/21 Attend Phys: Timothy Liu MD Discharge: Date of : 50 Report #: [id number]. 2. Successful atrial flutter ablation with evidence of bidirectional block. <ELECTRONICALLY SIGNED> By: Timothy Liu MD 04/10/21 1042 1006 2038 Timothy Liu MD /nt
[2021-04-10 11:33] VITALS: BP 111/54
[2021-04-10 11:34] VITALS: BP 111/54
--- NOTE | 2021-04-10 12:29 | NUR ---
PATIENT DISCHARGE DONE, PATIENT VERBALIZED UNDERSTANDING. NO QUESTIONS OR CONERNS AT TIME OF DISCHARGE. IV AND TELE REMOVED. TAKEN BY WHEELCHAIR TO PRIVATE VEHICLE WHERE WAS.
== END 2021-04-10 12:46 | disposition home or self-care (01) ==
LOC: CATH 06:25 → 2N 15:23
PROVIDERS: ADMIT Internal Medicine Cardiovascular Disease; ATTEND Internal Medicine Cardiovascular Disease
DX: I48.0 Paroxysmal atrial fibrillation (principal); I48.92 Unspecified atrial flutter; Z20.822 Contact with and (suspected) exposure to COVID-19; I42.9 Cardiomyopathy, unspecified; I25.10 Atherosclerotic heart disease of native coronary artery without angina pectoris; I10 Essential (primary) hypertension; E78.5 Hyperlipidemia, unspecified; I47.1 Supraventricular tachycardia; Z79.82 Long term (current) use of aspirin; Z79.899 Other long term (current) drug therapy
CPT/HCPCS: 62110; 62900; 65020; 70005

== ENCOUNTER → 2021-07-21 | Outpatient (CLI) | payer OTHER, MEDICARE ==
[~2021-07-21] MED LIST changes: +XARELTO1 EACH PO
[2021-07-21 12:55] VITALS: BP 100/52
--- NOTE | 2021-07-22 13:03 | P ---
[facility] [place] [address] PROCEDURE REPORT Name: DELVIS SORIA Room #: REG GRIS Arias.#: [id number] Admission: 07/21/21 Attend Phys: Timothy Liu MD Discharge: Date of : 50 Report #: [id number] THIS REPORT FOR: cc: Moshe Jones III, III,Timothy Crodwer MD ~ DATE OF SERVICE: 07/21/2021 PROCEDURE: Implantable loop recorder. PREOPERATIVE DIAGNOSIS: Atrial fibrillation. POSTOPERATIVE DIAGNOSIS: Atrial fibrillation. DESCRIPTION OF PROCEDURE: The patient underwent informed consent. She was prepped in a standard fashion. I injected lidocaine at the incision site. Incision was made, device injected, tested and found to be functioning normally. Single layer of suture was performed. Dressing was placed. No procedure related complications. Implanted device was a [employer]tronic LINQ, model #[id number]. CONCLUSION: Successful implantation of a loop recorder. <ELECTRONICALLY SIGNED> By: Timothy Liu MD 07/22/21 1303 1634 0116 Timothy Liu MD /nt
== END | disposition home or self-care (01) ==
LOC: CATH 08:35
PROVIDERS: ATTEND Internal Medicine Cardiovascular Disease
DX: I48.91 Unspecified atrial fibrillation (principal); Z98.890 Other specified postprocedural states; Z79.899 Other long term (current) drug therapy; Z79.01 Long term (current) use of anticoagulants; Z88.8 Allergy status to other drugs, medicaments and biological substances; Z79.82 Long term (current) use of aspirin

== ENCOUNTER 2021-09-21 09:22 | Inpatient (IN) | payer OTHER, MEDICARE ==
[~2021-09-21] VITALS: Ht 154.9 cm; Wt 77.1 kg
[2021-09-21 09:35] VITALS: BP 146/75
[2021-09-21 10:51] LABS: ABSOLUTE NEUTROPHILS 3.4 thou/uL (1.4-8.2); BASOPHILS 0.6 % (0.0-2.0); HEMATOCRIT 42.4 % (37.0-47.0); HEMOGLOBIN 14.3 gm/dL (12.0-15.0); LYMPHOCYTES 34.5 % (24.0-44.0); MCH 29.5 pg (26.0-34.0); MCHC 33.7 g/dL (28.0-37.0); MCV 87.3 fL (80.0-100.0); MONOCYTES 10.1 % (1.0-8.0); PLATELET COUNT 241 thou/uL (150-400); POLYS 50.8 % (36.0-66.0); RBC 4.86 mil/uL (4.20-5.00); RDW 13.5 % (10.5-14.5); WBC 6.8 thou/uL (4.0-11.0)
[2021-09-21 11:02] LABS: CALCIUM 9.2 mg/dL (8.5-10.1); CREATININE 1.3 mg/dL (0.6-1.0); POTASSIUM 4.1 mmol/L (3.5-5.1)
[2021-09-21 15:13] VITALS: BP 113/51
[2021-09-21 19:58] VITALS: BP 122/57
[2021-09-21 21:04] VITALS: BP 148/57
--- NOTE | 2021-09-21 23:03 | NUR ---
PT PRESENTED TO ED WITH INCREASED HR, THAT CONVERTED ON ITS OWN WHILE IN ED. PT HAS PALE SKIN TONE, BLE EDEMA. STEADY GAIT. IVF. PT CALLS FOR ASSIST. PT HAD COVID ONE MONTH AGO, TESTED POSITIVE TODAY IN ED. PT HAS BEEN VAXED AND HAD BOOSTER 06/07/21. 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 MED HX PAROXYSMAL AFIBB, WATCHMAN DEVICE IMPLAINT, HYPERTROPHIC OBSTRUCTIVE CARDIOMYOPATHY, HTN, RETINAL BLEEDS, HIGH CHOLESTEROL. IVF INTACT, PT HAD HS SNACK.
[2021-09-22 02:58] VITALS: BP 120/69
[2021-09-22 05:46] LABS: CREATININE 1.3 mg/dL (0.6-1.0); MAGNESIUM 2.1 mg/dL (1.8-2.4); POTASSIUM 4.4 mmol/L (3.5-5.1)
[2021-09-22 05:51] LABS: ABSOLUTE NEUTROPHILS 3.6 thou/uL (1.4-8.2); BASOPHILS 0.7 % (0.0-2.0); EOSINOPHILS 3.2 % (0.0-3.0); HEMATOCRIT 40.1 % (37.0-47.0); HEMOGLOBIN 13.4 gm/dL (12.0-15.0); LYMPHOCYTES 37.8 % (24.0-44.0); MCH 29.5 pg (26.0-34.0); MCHC 33.5 g/dL (28.0-37.0); MCV 87.9 fL (80.0-100.0); MONOCYTES 11.2 % (1.0-8.0); PLATELET COUNT 199 thou/uL (150-400); POLYS 47.1 % (36.0-66.0); RBC 4.56 mil/uL (4.20-5.00); RDW 13.8 % (10.5-14.5); WBC 7.6 thou/uL (4.0-11.0)
--- NOTE | 2021-09-22 07:38 | EKG ---
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 09/22/21 0738 8 8 Spike Macias MD, FACC /EPI
[2021-09-22 08:16] VITALS: BP 110/54
[2021-09-22 10:21] VITALS: BP 110/54
--- NOTE | 2021-09-22 12:00 | NUR ---
DISCHARGE: PT ALERT AND ORIENTED X4. ON ROOM AIR. DR. HFUF CAME THIS AM, STATED PT IS STABLE TO DISCHARGE. D/C ORDERS IN PLACED IN BY DR. PELLETIER. IV AND TELE DISCONTINUED. ALL BELONGINGS WITH PT. TAKEN DOWN VIA WHEELCHAIR, HERE TO PICK PT UP
== END 2021-09-22 12:10 | disposition home or self-care (01) | DRG 308 ==
LOC: ER 09:22 → EROBS 12:02 → 3W 12:02
PROVIDERS: Emergency Medicine; Nurse Practitioner; ADMIT Hospitalist; ATTEND Hospitalist
DX: I48.0 Paroxysmal atrial fibrillation (principal); U07.1 COVID-19; N17.9 Acute kidney failure, unspecified; I13.10 Hypertensive heart and chronic kidney disease without heart failure, with stage 1 through stage 4 chronic kidney disease, or unspecified chronic kidney disease; I42.2 Other hypertrophic cardiomyopathy; E78.5 Hyperlipidemia, unspecified; R77.8 Other specified abnormalities of plasma proteins; N18.9 Chronic kidney disease, unspecified; E86.0 Dehydration; I25.10 Atherosclerotic heart disease of native coronary artery without angina pectoris; Z20.822 Contact with and (suspected) exposure to COVID-19; Z79.01 Long term (current) use of anticoagulants; Z79.899 Other long term (current) drug therapy; Z79.82 Long term (current) use of aspirin; Z95.818 Presence of other cardiac implants and grafts; Z88.1 Allergy status to other antibiotic agents; Z88.2 Allergy status to sulfonamides; Z88.8 Allergy status to other drugs, medicaments and biological substances; Z91.09 Other allergy status, other than to drugs and biological substances
CPT/HCPCS: 10879

== ENCOUNTER 2021-10-04 05:58 | Inpatient (IN) | payer OTHER, MEDICARE ==
[~2021-10-04] VITALS: Ht 154.9 cm; Wt 77.1 kg
[~2021-10-04 05:58] MED LIST changes: -TOPROL XL100 MG PO; +TOPROL XL50 MG PO
[2021-10-04 06:02] VITALS: BP 141/80
[2021-10-04 07:02] LABS: ABSOLUTE NEUTROPHILS 3.2 thou/uL (1.4-8.2); BASOPHILS 1.3 % (0.0-2.0); EOSINOPHILS 3.5 % (0.0-3.0); HEMATOCRIT 40.8 % (37.0-47.0); HEMOGLOBIN 14.1 gm/dL (12.0-15.0); LYMPHOCYTES 42.2 % (24.0-44.0); MCH 30.3 pg (26.0-34.0); MCHC 34.6 g/dL (28.0-37.0); MCV 87.5 fL (80.0-100.0); MONOCYTES 9.7 % (1.0-8.0); PLATELET COUNT 281 thou/uL (150-400); POLYS 43.3 % (36.0-66.0); RBC 4.67 mil/uL (4.20-5.00); RDW 13.5 % (10.5-14.5); WBC 7.5 thou/uL (4.0-11.0)
[2021-10-04 08:20] LABS: CALCIUM 9.2 mg/dL (8.5-10.1); CREATININE 1.3 mg/dL (0.6-1.0); POTASSIUM 3.9 mmol/L (3.5-5.1)
--- NOTE | 2021-10-04 09:54 | EKG ---
[place] [address] [facility] [place] [address] ELECTROCARDIOGRAM REPORT Name: DELVIS SORIA Room #: 170-9 ADM IN M.R.#: [id number] Admission: 10/04/21 Attend Phys: Ed Lucio MD Discharge: Date of : 50 Report #: [id number] [facility] ED Test Date: 2021-10-04 Test Time: 06:06:02 Pat Name: DELVIS SORIA Department: Room: 170 Gender: F Water Manager: : 1950 Requested By: Acosta Palma Order Number: [id number] MD: Vikram Cardona Measurements Intervals Benedict Rate: 115 P: -53 VA: 155 QRS: 3 QRSD: 98 T: 146 QT: 375 QTc: 519 Interpretive Statements Sinus tachycardia versus atrial flutter Probable left atrial enlargement Abnormal R-wave progression, early transition LVH with secondary repolarization abnormality Prolonged QT interval Baseline wander in lead(s) V1 Compared to ECG 09/21/2021 09:39:24 Prolonged QT interval now present Sinus rhythm no longer present Electronically Signed On 10-04-2021 9:53:51 HEAVY FORGER by Vikram Cardona [email or web address] <ELECTRONICALLY SIGNED> By: Vikram Cardona MD 10/04/21 0953 Vikram Cardona MD /EPI
[2021-10-04 17:18] VITALS: BP 111/44
[2021-10-04 17:45] VITALS: BP 133/56
[2021-10-04 20:22] VITALS: BP 119/50
[2021-10-05 04:39] LABS: HEMOGLOBIN 12.9 gm/dL (12.0-15.0); MCH 29.4 pg (26.0-34.0); MCHC 33.2 g/dL (28.0-37.0); MCV 88.6 fL (80.0-100.0); RBC 4.4 mil/uL (4.20-5.00); RDW 13.8 % (10.5-14.5); WBC 6.9 thou/uL (4.0-11.0)
[2021-10-05 04:46] VITALS: BP 127/58
[2021-10-05 04:52] LABS: CALCIUM 8.7 mg/dL (8.5-10.1); CREATININE 1.3 mg/dL (0.6-1.0); POTASSIUM 3.6 mmol/L (3.5-5.1)
[2021-10-05 07:45] VITALS: BP 120/50
[2021-10-05] MEDS ORDERED: MULTAQ 400 MG400 MG PO (08:57)
[2021-10-05] MEDS ORDERED: TOPROL XL50 MG PO (10:03)
[2021-10-05 10:49] VITALS: BP 120/50
== END 2021-10-05 12:58 | disposition home or self-care (01) | DRG 310 ==
LOC: ER 05:58 → EROBS 09:07 → 2N 09:07
PROVIDERS: Emergency Medicine; ADMIT Hospitalist; ATTEND Hospitalist
DX: I48.92 Unspecified atrial flutter (principal); I48.0 Paroxysmal atrial fibrillation; I42.1 Obstructive hypertrophic cardiomyopathy; I10 Essential (primary) hypertension; E78.5 Hyperlipidemia, unspecified; I25.10 Atherosclerotic heart disease of native coronary artery without angina pectoris; I47.1 Supraventricular tachycardia; I49.5 Sick sinus syndrome; Z20.822 Contact with and (suspected) exposure to COVID-19; Z88.6 Allergy status to analgesic agent; Z88.2 Allergy status to sulfonamides; Z88.8 Allergy status to other drugs, medicaments and biological substances; Z79.82 Long term (current) use of aspirin; Z79.899 Other long term (current) drug therapy; Z90.710 Acquired absence of both cervix and uterus
CPT/HCPCS: 10081